=== PATIENT | male | born 1970 | race Caucasian/White ===

== ENCOUNTER 2017-03-17 21:09 | Emergency (ER) | payer OTHER ==
[~2017-03-17] VITALS: Ht 185.4 cm; Wt 97.3 kg
[~2017-03-17 21:09] MED LIST: ASPIR-LOW81 MG PO; BENADRYL25 MG PO; CLINDAMYCIN HC300 MG PO; DEPAKOTE500 MG PO; HALOPERIDOL2 MG PO; ULTRAM50 MG PO; ZOCOR40 MG PO; ZOLOFT100 MG PO
[2017-03-17 22:07] LABS: HEMATOCRIT 39.8 % (38.0-50.0); MCH 28.8 PG (29.0-34.0); MCHC 34.9 G/DL (30.0-36.0); MCV 82.6 FL (86-99); PLATELET COUNT 192 K/uL (156-360); RBC DIS.WIDTH-CV 12.7 % (11.8-14.6); RBC DIS.WIDTH-SD 38.3 % (39-53); RED BLOOD COUNT 4.82 M/uL (4.00-5.50); WHITE BLOOD COUNT 6.5 K/uL (4.1-10.2)
[2017-03-17 22:19] LABS: CHLORIDE 112 mEq/L (99-109); SODIUM 139 mEq/L (136-147)
[2017-03-17 22:20] LABS: GLUCOSE 96 mg/dL (70-99)
[2017-03-17 22:22] LABS: ANION GAP 12 MEQ/L (2-14)
[2017-03-17 22:24] LABS: GFR ESTIMATE (CALCULATED) > 59 mL/min/
[2017-03-17 22:25] LABS: UREA NITROGEN (BUN) 11 mg/dL (9-23)
[2017-03-17 22:30] LABS: TROP-I INTERPRETATION NEGATIVE; TROPONIN-I < 0.01 ng/mL (0.0-0.30)
[2017-03-17 23:32] VITALS: BP 187/113
== END 2017-03-18 04:32 | disposition short-term general hospital (02) ==
LOC: EME → EDBD 21:09 → EME 21:09
PROVIDERS: Emergency Medicine
DX: R07.9 Chest pain, unspecified (principal); I25.10 Atherosclerotic heart disease of native coronary artery without angina pectoris; I25.2 Old myocardial infarction; Z95.5 Presence of coronary angioplasty implant and graft; I10 Essential (primary) hypertension; E78.5 Hyperlipidemia, unspecified; Z86.73 Personal history of transient ischemic attack (TIA), and cerebral infarction without residual deficits; F25.9 Schizoaffective disorder, unspecified; F10.10 Alcohol abuse, uncomplicated; Z79.82 Long term (current) use of aspirin
CPT/HCPCS: 71020; 71275; 80048; 84484; 85027; 93005; 99281; 99285; J2270; J7030